=== PATIENT | male | born 1960 | race Caucasian/White ===

== ENCOUNTER 2020-06-07 06:26 | Inpatient (IN) ==
[~2020-06-07 06:26] MED LIST: Acetaminophen IV 1,000 MG/100 ML BAG IVPB ONE; Dexamethasone 4 MG/ML VIAL IVP ONE; Famotidine 20 MG/2 ML VIAL IVP ONE; Pregabalin 50 MG CAPSULE PO ONE
[2020-06-07] MEDS ORDERED: Vancomycin 1,000 MG VIAL ONE (07:13)
[2020-06-07] MEDS ORDERED: Ethanol\\Acetic Acid\\Na Ace\\Ben 1,000 ML IRRIG.SOLN IR ONE (07:13)
[2020-06-07] MEDS ORDERED: *HR* Succinylcholine 200 MG/10 ML VIAL IVP ONE (07:16)
[2020-06-07] MEDS ORDERED: *HR* Propofol 200 MG/20 ML VIAL IVP ONE (07:16)
[2020-06-07] MEDS ORDERED: *HR* FentaNYL (PF) 100 MCG/2 ML VIAL ONE ×2 (07:16→09:00)
[2020-06-07] MEDS ORDERED: CeFAZolin Syr 2,000MG/20 ML 2,000 MG/20 ML SYRINGE IVPB ONE (07:16)
[2020-06-07] MEDS ORDERED: *HR* Midazolam HCl 2 MG/2 ML VIAL ONE (07:16)
[2020-06-07] MEDS ORDERED: Lidocaine -MPF 2% 2 ML VIAL ONE (07:16)
[2020-06-07] MEDS ORDERED: Dexamethasone 4 MG/ML VIAL ONE (07:16)
[2020-06-07] MEDS ORDERED: Ondansetron 4 MG/2 ML VIAL ONE (07:16)
[2020-06-07] MEDS ORDERED: Lidocaine -MPF 4% 5 ML AMPUL ONE (07:16)
[2020-06-07] MEDS ORDERED: Ringers Solution, Lactated 1,000 ML IVC SCH ×2 (07:30→10:53)
[2020-06-07] MEDS ORDERED: Ropivacaine/PF 0.5% 30 ML VIAL ONE (07:37)
[2020-06-07] MEDS ORDERED: *HR* HYDROmorphone PF 0.5 MG/0.5 ML SYRINGE IVP PRN (07:50)
[2020-06-07] MEDS ORDERED: Naloxone 0.4 MG/ML INJ IVP PRN ×2 (07:50→10:53)
[2020-06-07] MEDS ORDERED: Albuterol 2.5 MG/3 ML NEBULIZER IH PRN (07:50)
[2020-06-07] MEDS ORDERED: Ondansetron 4 MG/2 ML VIAL IVP PRN ×2 (07:50→10:53)
[2020-06-07] MEDS ORDERED: *HR* FentaNYL (PF) 100 MCG/2 ML VIAL IVP PRN (07:50)
[2020-06-07] MEDS ORDERED: Povidone-Iodine 45 ML, Sodium Chloride IRRigation 1,000 ML IR ONE (08:15)
[2020-06-07] MEDS ORDERED: TOTAL JOINT MIXTURE (100ML) INTRAART ONE (08:15)
[2020-06-07] MEDS ORDERED: EPHEDrine 50 MG/ML VIAL ONE (08:39)
[2020-06-07] MEDS ORDERED: *HR* PHENYLEPHRINE 1,000 MCG/10 ML SYRINGE IVP ONE ×2 (08:51→09:12)
[2020-06-07] MEDS ORDERED: Sugammadex Sodium 200 MG/2 ML VIAL IV ONE (09:20)
[2020-06-07] MEDS ORDERED: *HR* Metoprolol 5 MG/5 ML VIAL IVP ONE (09:22)
[2020-06-07] MEDS ORDERED: EPHEDrine 50 MG/ML VIAL IVP PRN (09:54)
[2020-06-07 10:21] LABS: Hematocrit 37.9 % (37.5-50.1); Hemoglobin 12.9 g/dL (12.9-16.9); Mean Corpuscular Hemoglobin 30.9 pg (28.0-33.3); Mean Corpuscular Volume 90.7 fL (83.0-100.0); Mean Platelet Volume 9.7 fL (9.4-12.4); Platelet Count 185 K/mcL (140-400); Red Blood Count 4.18 M/mcL (4.19-5.50); Red Cell Distribution Width 12.3 % (11.5-14.5); White Blood Count 8.6 K/mcL (4.3-11.1)
[2020-06-07 10:38] LABS: BUN/Creatinine Ratio 22 (6-26); Blood Urea Nitrogen 21 mg/dL (6-20); Calcium 8.6 mg/dL (8.6-10.3); Carbon Dioxide 26 mEq/L (23-29); Chloride 104 mEq/L (98-107); Glucose 123 mg/dL (70-105); Osmolality,Calculated 288 (280-300); Potassium 4.4 mEq/L (3.5-5.1); Sodium 137 mEq/L (136-145); eGFR For African Americans > 60 (> 60); eGFR For Non-African Americans > 60 (> 60)
[2020-06-07] MEDS ORDERED: *HR* OxyCODONE/APAP 5/325 TABLET PO PRN (10:53)
[2020-06-07] MEDS ORDERED: *HR* Dextrose 50 % in Water (Vial) 50 ML VIAL IVP PRN (10:53)
[2020-06-07] MEDS ORDERED: Ibuprofen 600 MG TABLET PO PRN (10:53)
[2020-06-07] MEDS ORDERED: Dextrose Gel 15 GM/37.5 ML TUBE PO PRN ×2 (10:53)
[2020-06-07] MEDS ORDERED: Sennosides 8.6 MG TABLET PO PRN (10:53)
[2020-06-07] MEDS ORDERED: MOM Conc 10 ML UD.LIQ PO PRN (10:53)
[2020-06-07] MEDS ORDERED: *HR* OxyCODONE Immed Rel 5 MG TABLET PO PRN (10:53)
[2020-06-07] MEDS ORDERED: D5% in Water 1,000 ML IVC PRN (10:53)
[2020-06-07] MEDS ORDERED: Insulin LISPRO 300 UNITS/3 ML VIAL SUBQ SCH ×2 (11:30→21:00)
[2020-06-07] MEDS ORDERED: *HR* Enoxaparin 30 MG/0.3 ML SYRINGE SQ ONE (14:13)
[2020-06-07 14:47] VITALS: BP 118/69
[2020-06-07] MEDS ORDERED: CeFAZolin 2 GM/120 ML BAG IVPB SCH (16:00)
[2020-06-07] MEDS ORDERED: *HR* Enoxaparin 30 MG/0.3 ML SYRINGE SQ SCH ×3 (18:00)
== END 2020-06-07 17:22 | disposition home or self-care (01) | DRG 483 ==
LOC: SAMDAY 06:26 → 3NENU 10:48
PROVIDERS: ADMIT Orthopaedic Surgery; ATTEND Orthopaedic Surgery